=== PATIENT | male | born 1980 | race American Indian/Alaskan Native ===

== ENCOUNTER 2018-04-28 07:45 | Emergency (ER) | payer MEDICAID, OTHER ==
[2018-04-28 07:46] VITALS: BMI 25.8
--- NOTE | 2018-04-28 09:01 | ED PDOC ---
Lower Extremity Pain/Injury Time Seen by Provider: 04/28/18 08:48 Chief Complaint (Nursing): Lower Extremity Problem/Injury History Per: Patient (states painful area on foot where blister is formed from walking too much yesterday) Past Medical History Reviewed: Historical Data, Nursing Documentation, Vital Signs Vital Signs: Last Vital Signs Temp 98 F 04/28/18 07:50 Pulse 60 04/28/18 07:50 Resp 16 04/28/18 07:50 BP 144/94 H 04/28/18 07:50 Pulse Ox 99 04/28/18 07:50 - Medical History PMH: Depression, Hepatitis (C) Denies: Diabetes, HIV, HTN, Chronic Kidney Disease, Seizures, Sexually Transmitted Disease - Family History Family History: States: Unknown Family Hx - Living Arrangements Living Arrangements: Alone - Immunization History Hx Tetanus Toxoid Vaccination: No Hx Influenza Vaccination: No Hx Pneumococcal Vaccination: No - Home Medications Home Medications: Ambulatory Orders Medication Instructions Recorded Gabapentin [Neurontin] 300 mg PO BID #60 cap 07/16/17 Mirtazapine [Remeron] 15 mg PO HS #30 tab 07/16/17 traZODone [Desyrel] 100 mg PO HS PRN #30 tab 07/16/17 - Allergies Allergies/Adverse Reactions: Allergies Allergy/AdvReac Type Severity Reaction Status Date / Time No Known Allergies Allergy Verified 07/13/17 09:55 Review of Systems ROS Statement: Except As Marked, All Systems Reviewed And Found Negative Skin: Positive for: Other (blister on the plantar surface with thickened skin) Physical Exam - Reviewed Nursing Documentation Reviewed: Yes Vital Signs Reviewed: Yes - Physical Exam Appears: Positive for: Well, Non-toxic, No Acute Distress Head Exam: Positive for: ATRAUMATIC, NORMAL INSPECTION, NORMOCEPHALIC Skin: Positive for: Normal Color Eye Exam: Positive for: Normal appearance ENT: Positive for: Normal ENT Inspection Neck: Positive for: Normal Respiratory: Negative for: Respiratory Distress Gastrointestinal/Abdominal: Negative for: Distended Back: Positive for: Normal Inspection Extremity: Positive for: Normal ROM, Other (friction blister forefoot, plantar surface. no erythema.) Neurologic/Psych: Positive for: Alert, Oriented - ECG O2 Sat by Pulse Oximetry: 99 Disposition - Clinical Impression Clinical Impression: Blister of foot - Disposition Referrals: Podiatry Clinic [Outside] Disposition Time: 09:01 Condition: STABLE Instructions: Blisters Forms: [facility] (Mozambican)
[2018-04-28 10:28] VITALS: BP 128/75; PULSE 78; RESP 18; TEMP 97.8; O2SAT 100
== END 2018-04-28 09:20 | disposition home or self-care (01) ==
LOC: H.ER 07:45
DX: S90.821A Blister (nonthermal), right foot, initial encounter (principal); Y92.89 Other specified places as the place of occurrence of the external cause

== ENCOUNTER 2018-11-09 18:38 | Emergency (ER) | payer MEDICAID, OTHER ==
[2018-11-09 18:44] VITALS: BMI 25.8
[2018-11-09] MEDS ORDERED: Sodium Chloride 0.9% 1,000 ML IV STA (19:18)
[2018-11-09 20:22] LABS: BASO # 0.2 K/uL (0.0-0.2); BASO % 1.3 % (0.0-2.0); EOS # 0.1 K/uL (0.0-0.7); EOS % 0.7 % (0.0-4.0); HEMOGLOBIN 14.1 g/dL (12.0-18.0); LYMPH % 16.2 % (20.0-40.0); MEAN CELL VOLUME 91.3 fl (80.0-94.0); MEAN CORPUSCULAR HGB CONC 32.9 g/dL (33.0-37.0); MONO # 1.1 K/uL (0.0-0.8); NEUT # 9.1 K/uL (1.8-7.0); NEUT % 72.8 % (50.0-75.0); RBC 4.71 Mil/uL (4.40-5.90); RED CELL DISTRIBUTION WIDTH 13.7 % (11.5-14.5); WHITE BLOOD COUNT 12.5 K/uL (4.8-10.8)
--- NOTE | 2018-11-09 20:24 | ED PDOC ---
HPI: Psych/Substance Abuse Time Seen by Provider: 11/09/18 19:13 Chief Complaint (Nursing): Substance Abuse Chief Complaint (Provider): Substance Abuse History Per: Patient History/Exam Limitations: no limitations Onset/Duration Of Symptoms: Mins Current Symptoms Are (Timing): Still Present Additional Complaint(s): 38 y/o homless male, known for opioid abuse, brought in by EMS for evaluation of an overdose, onset prior to arrival. Patient given narcan intranasally in the field. On arrival, patient offered no other complaints. Of note, patient was just discharge from detoxing at [facility] this morning. Patient admits to snorting Heroin. Patient offers no other complaints. PMD: none Past Medical History Reviewed: Historical Data, Nursing Documentation, Vital Signs Vital Signs: Last Vital Signs Temp 98.5 F 11/09/18 18:40 Pulse 92 H 11/09/18 18:40 Resp 16 11/09/18 18:40 BP 146/91 H 11/09/18 18:40 Pulse Ox 99 11/09/18 18:40 - Medical History PMH: Anemia, Depression, Hepatitis (C) Denies: Diabetes, HIV, HTN, Chronic Kidney Disease, Seizures, Sexually Transmitted Disease - Surgical History Surgical History: No Surg Hx - Family History Family History: States: Unknown Family Hx - Living Arrangements Living Arrangements: Other (HOMELESS) - Social History Drugs: Other (Heroin) - Immunization History Hx Tetanus Toxoid Vaccination: No Hx Influenza Vaccination: No Hx Pneumococcal Vaccination: No - Home Medications Home Medications: Ambulatory Orders Medication Instructions Recorded Mirtazapine [Remeron] 15 mg PO HS #30 tab 11/09/18 Naloxone HCl [Narcan] 4 mg NS ONCE PRN #1 spray 11/09/18 traZODone [Desyrel] 50 mg PO HS PRN #30 tab 11/09/18 - Allergies Allergies/Adverse Reactions: Allergies Allergy/AdvReac Type Severity Reaction Status Date / Time No Known Allergies Allergy Verified 11/09/18 18:43 Review of Systems ROS Statement: Except As Marked, All Systems Reviewed And Found Negative Psych: Positive for: Other (OVERDOSE) Physical Exam - Reviewed Nursing Documentation Reviewed: Yes Vital Signs Reviewed: Yes - Physical Exam Appears: Positive for: No Acute Distress Head Exam: Positive for: ATRAUMATIC, NORMOCEPHALIC Skin: Positive for: Normal Color, Warm, Dry Eye Exam: Positive for: Normal appearance, EOMI, PERRL Neck: Positive for: Normal, Painless ROM, Supple Cardiovascular/Chest: Positive for: Regular Rate, Rhythm. Negative for: Murmur Respiratory: Positive for: Normal Breath Sounds. Negative for: Respiratory Distress Gastrointestinal/Abdominal: Positive for: Normal Exam, Soft. Negative for: Tenderness Back: Positive for: Normal Inspection. Negative for: L CVA Tenderness, R CVA Tenderness, Vertebral Tenderness Extremity: Positive for: Normal ROM. Negative for: Pedal Edema, Deformity Neurologic/Psych: Positive for: Alert, Oriented. Negative for: Motor/Sensory Deficits - Laboratory Results Result Diagrams: 11/09/18 20:05 11/09/18 20:05 - ECG O2 Sat by Pulse Oximetry: 99 (RA) Pulse Ox Interpretation: Normal Medical Decision Making Medical Decision Making: Time: 1916 Impression: 38 y/o homeless male presenting with substance abuse Plan: -- EKG -- Alcohol Serum -- CMP -- Urine Drug Screen -- CBC with Differentials -- Glucose, POC -- Motrin 600 mg PO -- Sodium Chloride IV 1000 mls/hr -- Heplock Insertion -- Accucheck Time: 2147 -- Patient watched for 3 hours and remains alert and oriented. Provider given confusing EKG. Patient requesting to be discharged at this time. Scribe Attestation: Documented by Yumi Loo, acting as a scribe for Ky Campos MD. Provider Scribe Attestation: All medical record entries made by the Scribe were at my direction and personally dictated by me. I have reviewed the chart and agree that the record accurately reflects my personal performance of the history, physical exam, medical decision making, and the department course for this patient. I have also personally directed, reviewed, and agree with the discharge instructions and disposition. Disposition - Clinical Impression Clinical Impression: Opiate overdose - Patient ED Disposition Is Patient to be Admitted: No Counseled Patient/Family Regarding: Diagnosis, Rx Given - Disposition Disposition: Routine/Home Disposition Time: 21:48 Condition: STABLE Prescriptions: Naloxone HCl [Narcan] 4 mg NS ONCE PRN #1 spray PRN Reason: opiate overdose Instructions: Narcotic Overdose Forms: [email or web address] [facility] (Maltese)
[2018-11-09 20:32] LABS: ALB/GLOB RATIO 1.3 (1.0-2.1); ALBUMIN 4.7 g/dL (3.5-5.0); ALT/SGPT 37 U/L (21-72); AST/SGOT 34 U/L (17-59); BLOOD UREA NITROGEN 11 mg/dl (9-20); CALCIUM 9.8 mg/dL (8.4-10.2); GFR NON-AFRICAN AMERICAN > 60
[2018-11-09 20:42] LABS: BARBITURATES, UR NEGATIVE (NEGATIVE); BENZODIAZEPINES, UR POSITIVE (NEGATIVE); OPIATES, UR POSITIVE (NEGATIVE); PHENCYCLIDINE, UR NEGATIVE (NEGATIVE)
[2018-11-10 01:37] VITALS: BP 143/89; PULSE 88; RESP 18; TEMP 98.4; O2SAT 98
== END 2018-11-09 22:00 | disposition home or self-care (01) ==
LOC: H.ER 18:38
DX: T40.601A Poisoning by unspecified narcotics, accidental (unintentional), initial encounter (principal); F11.10 Opioid abuse, uncomplicated; Z59.0 Homelessness; Z79.899 Other long term (current) drug therapy; F32.9 Major depressive disorder, single episode, unspecified